=== PATIENT | female | born 1995 | race Two or more races ===

== ENCOUNTER 2017-06-23 12:44 | Day surgery (SDC) | payer OTHER ==
[2017-06-23] MEDS ORDERED: CEFAZOLIN 2 GM/50 ML (PMX) 50 ML IVPB (13:30)
[2017-06-23] MEDS ORDERED: SOD CHLORIDE 0.9% 1,000 ML IV (13:30)
[2017-06-23] MEDS ORDERED: ONDANSETRON 4 MG INJ (15:03)
[2017-06-23] MEDS ORDERED: MIDAZOLAM 1 MG/ML 2 ML INJ (15:03)
[2017-06-23] MEDS ORDERED: CEFAZOLIN 1 GM INJ (15:03)
[2017-06-23] MEDS ORDERED: ROCURONIUM 50 MG INJ (15:03)
[2017-06-23] MEDS ORDERED: PROPOFOL 20 ML (15:03)
[2017-06-23] MEDS ORDERED: METOCLOPRAMIDE 10 MG INJ (15:05)
[2017-06-23] MEDS ORDERED: KETOROLAC 30 MG INJ (15:41)
[2017-06-23] MEDS ORDERED: ACETAMINOPHEN 1000MG/100ML IV 100 ML (15:41)
[2017-06-23] MEDS ORDERED: NEOSTIGMINE 3 MG/3 ML SYRINGE (15:54)
[2017-06-23] MEDS: BUPIVACAINE 0.25% (MPF) 30 ML INJ (15:55)
[2017-06-23] MEDS ORDERED: EPHEDrine SULFATE 50 MG/5 ML SYG (15:57)
[2017-06-23] MEDS ORDERED: HYDROCODONE/APAP (5/325) TAB PO (16:00)
== END 2017-06-23 18:00 | disposition home or self-care (01) ==
LOC: SDS 12:44
DX: K64.8 Other hemorrhoids (principal); K64.4 Residual hemorrhoidal skin tags
CPT/HCPCS: 46946; 84703; 88304

== ENCOUNTER 2017-07-02 11:07 | Inpatient (IN) | payer OTHER ==
[2017-07-02] MEDS: morphine 2 MG INJ IV ×2 (13:28→22:59)
[2017-07-02] MEDS: KETOROLAC 15 MG INJ IV (13:28)
[2017-07-02 16:31] LABS: ANION GAP 22 (8-16); BLOOD UREA NITROGEN 11 mg/dl (7-20); CALCIUM 10.5 mg/dl (8.4-10.2); CARBON DIOXIDE 28 mmol/L (21-31); CHLORIDE 101 mmol/L (97-110); CREATININE 0.69 mg/dl (0.44-1.00); GLUCOSE 62 mg/dl (70-220); POTASSIUM 4.7 mmol/L (3.5-5.1); SODIUM 146 mmol/L (135-144)
[2017-07-02] MEDS: SOD CHLORIDE 0.9% 100 ML (17:57)
[2017-07-02] MEDS: IOHEXOL 300MG/ML 150 ML BTL (17:58)
[2017-07-02 18:12] LABS: ADD MAN DIFF? NO
[2017-07-02 18:13] LABS: BASOPHIL # 0.1 10^3/ul (0.0-0.1); BASOPHILS % 0.6 % (0.0-2.0); EOSINOPHILS # 0.1 10^3/ul (0.0-0.5); EOSINOPHILS % 0.6 % (0.0-7.0); HEMATOCRIT 43.5 % (37.0-47.0); HEMOGLOBIN 14.3 g/dl (12.0-16.0); LYMPHOCYTES # 2.2 10^3/ul (0.8-2.9); LYMPHOCYTES % 19.6 % (15.0-51.0); MEAN CORPUSCULAR HEMOGLOBIN 29.2 pg (29.0-33.0); MEAN CORPUSCULAR HGB CONC 32.9 g/dl (32.0-37.0); MEAN PLATELET VOLUME 10.4 fl (7.4-10.4); MONOCYTE # 0.7 10^3/ul (0.3-0.9); MONOCYTES % 6.2 % (0.0-11.0); NEUTROPHILS % 72.3 % (39.0-77.0); PLATELET COUNT 511 10^3/UL (140-415); RED BLOOD COUNT 4.89 10^6/ul (4.20-5.40); RED CELL DISTRIBUTION WIDTH 13.5 % (11.5-14.5)
[2017-07-02 18:27] LABS: INR 0.97
[2017-07-02 18:28] LABS: PARTIAL THROMBOPLASTIN TIME 31.4 Sec (25.0-35.0)
[2017-07-02] MEDS: SOD CHLORIDE 0.9% 1,000 ML IV (18:39)
[2017-07-02] MEDS: PIPER-TAZO 3.375 GM IV (PMX) 100 ML IVPB (18:39)
[2017-07-02] MEDS: VANCOMYCIN 1.25 GM in SOD CHLORIDE 0.9% 250 ML IVPB (19:12)
[2017-07-02] MEDS ORDERED: ONDANSETRON 4 MG INJ IV ×2 (20:30→21:30)
[2017-07-02] MEDS ORDERED: ACETAMINOPHEN 325 MG TAB PO (20:30)
[2017-07-02] MEDS ORDERED: VANCOMYCIN IV PER PHARMACY XX (21:30)
[2017-07-02] MEDS ORDERED: NACL 0.9% 3 ML SYG IV (21:30)
[2017-07-02] MEDS ORDERED: DOCUSATE SODIUM 100 MG CAP PO (21:30)
[2017-07-02] MEDS ORDERED: BISACODYL (EC) 5 MG TAB PO (21:30)
[2017-07-02] MEDS: MAGNESIUM HYDROXIDE 30ML CUP PO (21:34)
[2017-07-03] MEDS: SOD CHLORIDE 0.9% 1,000 ML IV ×3 (00:21→17:26)
[2017-07-03] MEDS: PIPER-TAZO 3.375 GM IV (PMX) 100 ML IVPB ×4 (00:21→17:27)
[2017-07-03] MEDS: HYDROCODONE/APAP (5/325) TAB PO (00:29)
[2017-07-03] MEDS: VANCOMYCIN 750 MG in DEXTROSE 5% 150 ML IVPB (03:05)
[2017-07-03] MEDS: morphine 2 MG INJ IV ×4 (03:25→21:53)
[2017-07-03 05:15] LABS: ADD MAN DIFF? NO
[2017-07-03 05:20] LABS: BASOPHIL # 0.1 10^3/ul (0.0-0.1); BASOPHILS % 0.6 % (0.0-2.0); EOSINOPHILS # 0.2 10^3/ul (0.0-0.5); EOSINOPHILS % 1.9 % (0.0-7.0); HEMATOCRIT 36.8 % (37.0-47.0); HEMOGLOBIN 12.1 g/dl (12.0-16.0); LYMPHOCYTES # 3.5 10^3/ul (0.8-2.9); LYMPHOCYTES % 31.7 % (15.0-51.0); MEAN CORPUSCULAR HEMOGLOBIN 28.9 pg (29.0-33.0); MEAN CORPUSCULAR HGB CONC 32.9 g/dl (32.0-37.0); MEAN CORPUSCULAR VOLUME 87.8 fl (82.0-101.0); MEAN PLATELET VOLUME 9.6 fl (7.4-10.4); MONOCYTE # 0.7 10^3/ul (0.3-0.9); MONOCYTES % 6.6 % (0.0-11.0); NEUTROPHIL # 6.4 10^3/ul (1.6-7.5); NEUTROPHILS % 58.5 % (39.0-77.0); PLATELET COUNT 464 10^3/UL (140-415); RED BLOOD COUNT 4.19 10^6/ul (4.20-5.40)
[2017-07-03 05:20] LABS: WHITE BLOOD COUNT 10.9 10^3/ul (4.8-10.8)
[2017-07-03 05:33] LABS: ALANINE AMINOTRANSFERASE 27 IU/L (13-69); ALBUMIN 3.6 g/dl (3.3-4.9); ALBUMIN/GLOBULIN RATIO 1.02; ALKALINE PHOSPHATASE 54 IU/L (42-121); ANION GAP 16 (8-16); ASPARTATE AMINO TRANSFERASE 39 IU/L (15-46); BILIRUBIN,INDIRECT 0.5 mg/dl (0-1.1); BILIRUBIN,TOTAL 0.5 mg/dl (0.2-1.3); BLOOD UREA NITROGEN 11 mg/dl (7-20); CARBON DIOXIDE 26 mmol/L (21-31); CHLORIDE 106 mmol/L (97-110); CREATININE 0.91 mg/dl (0.44-1.00); GLUCOSE 99 mg/dl (70-220); POTASSIUM 4.1 mmol/L (3.5-5.1); SODIUM 144 mmol/L (135-144); TOTAL PROTEIN 7.1 g/dl (6.1-8.1)
[2017-07-03] MEDS: CEFTRIAXONE 1 GM/50 ML (PMX) 50 ML IVPB (06:33)
[2017-07-03] MEDS: POLYETHYLENE GLYCOL 17 GM PACKET PO ×2 (11:19→21:41)
[2017-07-03] MEDS: MAGNESIUM CITRATE 300 ML BTL PO (14:35)
[2017-07-03] MEDS: metroNIDAZOLE 500 MG/NS (PMX) 100 ML IVPB ×2 (14:36→21:40)
[2017-07-03] MEDS: PRAMOXINE 1% 15 GM RECT FOAM PR (15:01)
[2017-07-03 15:31] LABS: TROPONIN-I < 0.012 ng/ml (0.00-0.12)
[2017-07-03 16:03] LABS: AMPHETAMINE/METHAMPHETAMINE Negative (NEGATIVE); BARBITURATES Negative (NEGATIVE); BENZODIAZEPINES Negative (NEGATIVE); CANNABINOIDS Negative (NEGATIVE); COCAINE Negative (NEGATIVE); OPIATES Positive (NEGATIVE)
[2017-07-03] MEDS: LACTULOSE 30ML CUP PO (21:41)
[2017-07-04] MEDS: PIPER-TAZO 3.375 GM IV (PMX) 100 ML IVPB ×4 (00:48→18:24)
[2017-07-04] MEDS: PRAMOXINE 1% 15 GM RECT FOAM PR (01:17)
[2017-07-04] MEDS: morphine 2 MG INJ IV ×5 (02:21→22:30)
[2017-07-04] MEDS: LACTULOSE 30ML CUP PO ×3 (05:30→22:30)
[2017-07-04 05:32] LABS: ADD MAN DIFF? NO
[2017-07-04] MEDS: SOD CHLORIDE 0.9% 1,000 ML IV (05:32)
[2017-07-04 05:36] LABS: BASOPHILS % 0.5 % (0.0-2.0); EOSINOPHILS # 0.1 10^3/ul (0.0-0.5); EOSINOPHILS % 1.1 % (0.0-7.0); HEMATOCRIT 36.8 % (37.0-47.0); HEMOGLOBIN 12.1 g/dl (12.0-16.0); LYMPHOCYTES # 1.6 10^3/ul (0.8-2.9); LYMPHOCYTES % 18.1 % (15.0-51.0); MEAN CORPUSCULAR HEMOGLOBIN 28.8 pg (29.0-33.0); MEAN CORPUSCULAR HGB CONC 32.9 g/dl (32.0-37.0); MEAN CORPUSCULAR VOLUME 87.6 fl (82.0-101.0); MEAN PLATELET VOLUME 9.2 fl (7.4-10.4); MONOCYTE # 0.5 10^3/ul (0.3-0.9); MONOCYTES % 5.6 % (0.0-11.0); NEUTROPHIL # 6.5 10^3/ul (1.6-7.5); NEUTROPHILS % 74.4 % (39.0-77.0); PLATELET COUNT 468 10^3/UL (140-415); RED CELL DISTRIBUTION WIDTH 12.8 % (11.5-14.5)
[2017-07-04 05:36] LABS: WHITE BLOOD COUNT 8.7 10^3/ul (4.8-10.8)
[2017-07-04 06:00] LABS: MAGNESIUM 2.2 mg/dl (1.7-2.5)
[2017-07-04 06:00] LABS: PHOSPHORUS 3.7 mg/dl (2.5-4.9)
[2017-07-04] MEDS: metroNIDAZOLE 500 MG/NS (PMX) 100 ML IVPB ×3 (06:02→21:41)
[2017-07-04 06:07] LABS: ANION GAP 15 (8-16); BLOOD UREA NITROGEN 6 mg/dl (7-20); CALCIUM 9.3 mg/dl (8.4-10.2); CARBON DIOXIDE 29 mmol/L (21-31); CHLORIDE 106 mmol/L (97-110); CREATININE 0.86 mg/dl (0.44-1.00); GLUCOSE 103 mg/dl (70-220); POTASSIUM 4.3 mmol/L (3.5-5.1); SODIUM 146 mmol/L (135-144)
[2017-07-04] MEDS ORDERED: LORAZEPAM 2 MG INJ IV (10:00)
[2017-07-04] MEDS: POLYETHYLENE GLYCOL 17 GM PACKET PO ×2 (10:16→21:41)
[2017-07-05] MEDS: PIPER-TAZO 3.375 GM IV (PMX) 100 ML IVPB ×5 (00:23→23:47)
[2017-07-05] MEDS: HYDROCODONE/APAP (5/325) TAB PO (00:35)
[2017-07-05] MEDS: PRAMOXINE 1% 15 GM RECT FOAM PR ×3 (04:33→13:43)
[2017-07-05] MEDS: ACETAMINOPHEN 325 MG TAB PO ×2 (04:33→21:17)
[2017-07-05 06:19] LABS: ADD MAN DIFF? NO
[2017-07-05] MEDS: LACTULOSE 30ML CUP PO ×3 (06:21→21:20)
[2017-07-05] MEDS: metroNIDAZOLE 500 MG/NS (PMX) 100 ML IVPB ×3 (06:21→21:18)
[2017-07-05 06:25] LABS: WHITE BLOOD COUNT 8.1 10^3/ul (4.8-10.8)
[2017-07-05 06:25] LABS: BASOPHIL # 0.1 10^3/ul (0.0-0.1); BASOPHILS % 0.7 % (0.0-2.0); EOSINOPHILS # 0.2 10^3/ul (0.0-0.5); HEMATOCRIT 35.1 % (37.0-47.0); HEMOGLOBIN 11.6 g/dl (12.0-16.0); LYMPHOCYTES # 2.7 10^3/ul (0.8-2.9); LYMPHOCYTES % 33.1 % (15.0-51.0); MEAN CORPUSCULAR HEMOGLOBIN 29.3 pg (29.0-33.0); MEAN CORPUSCULAR VOLUME 88.6 fl (82.0-101.0); MEAN PLATELET VOLUME 9.3 fl (7.4-10.4); MONOCYTE # 0.6 10^3/ul (0.3-0.9); MONOCYTES % 7.3 % (0.0-11.0); NEUTROPHIL # 4.5 10^3/ul (1.6-7.5); NEUTROPHILS % 55.7 % (39.0-77.0); PLATELET COUNT 426 10^3/UL (140-415); RED BLOOD COUNT 3.96 10^6/ul (4.20-5.40); RED CELL DISTRIBUTION WIDTH 12.9 % (11.5-14.5)
[2017-07-05 06:42] LABS: MAGNESIUM 1.9 mg/dl (1.7-2.5)
[2017-07-05 06:42] LABS: PHOSPHORUS 4.2 mg/dl (2.5-4.9)
[2017-07-05 07:12] LABS: ANION GAP 16 (8-16); BLOOD UREA NITROGEN 6 mg/dl (7-20); CALCIUM 9.2 mg/dl (8.4-10.2); CARBON DIOXIDE 27 mmol/L (21-31); CHLORIDE 106 mmol/L (97-110); CREATININE 0.84 mg/dl (0.44-1.00); GLUCOSE 82 mg/dl (70-220); POTASSIUM 4.5 mmol/L (3.5-5.1); SODIUM 144 mmol/L (135-144)
[2017-07-05 07:49] LABS: HEMOGLOBIN A1C 4.8 % (0-5.9)
[2017-07-05] MEDS: morphine 2 MG INJ IV (08:55)
[2017-07-05] MEDS: POLYETHYLENE GLYCOL 17 GM PACKET PO ×2 (09:00→21:00)
[2017-07-05] MEDS: KETOROLAC 30 MG INJ IV ×2 (13:24→23:52)
[2017-07-05] MEDS: OXYCODONE/ACETAMINOPHEN (5/325) TAB PO (22:23)
[2017-07-06] MEDS: POLYETHYLENE GLYCOL 17 GM PACKET PO (01:11)
[2017-07-06] MEDS: PRAMOXINE 1% 15 GM RECT FOAM PR (01:23)
[2017-07-06] MEDS: metroNIDAZOLE 500 MG/NS (PMX) 100 ML IVPB ×2 (05:07→15:26)
[2017-07-06] MEDS: LACTULOSE 30ML CUP PO ×2 (06:00→14:00)
[2017-07-06] MEDS: PIPER-TAZO 3.375 GM IV (PMX) 100 ML IVPB ×3 (06:08→17:52)
== END 2017-07-06 17:25 | disposition home or self-care (01) | DRG 392 ==
LOC: FTE 11:07 → PP2 23:31
DX: K59.09 Other constipation (principal); N39.0 Urinary tract infection, site not specified; F41.9 Anxiety disorder, unspecified; F19.10 Other psychoactive substance abuse, uncomplicated; Z98.890 Other specified postprocedural states
CPT/HCPCS: 36415; 74018; 74177; 80048; 80053; 80307; 81025; 83036; 83735; 84100; 84484; 85025; 85610; 85730; 87040; 87081; 87086; 93005; 96374; 96375; 96376; 99285-25